=== PATIENT | male | born 1955 | race Caucasian/White ===

== ENCOUNTER 2018-09-08 14:41 | Emergency (ER) | payer SELFPAY ==
[~2018-09-08] VITALS: Ht 182.9 cm; Wt 75.0 kg
--- NOTE | 2018-09-08 14:49 | NUR ---
FOUND UNCONSIOUS BY EMS WITH A 2 CM LACERATION ON THE BACK OF HIS HEAD. 1.5 MG NARCAN GIVEN IN THE FIELD WITH EFFECT. PT CLAIMS HIS NAME IS CHIKA LLAMAS. PT STATES HE HAS A HEADACHE. PT NOT ANSWERING QUESTIONS ASKED BY RNS. VS STABLE. PT PLACED IN A GOWN.
--- NOTE | 2018-09-08 14:57 | NUR ---
DR BRIDGES AT BEDSIDE. PT NOT FORTHCOMING REGARDING HEALTH HX AND EVENTS LEADING TO CURRENT SITUATION. POC DISCUSSED, ORDERS REC'D. PT ON ALL MONITORS, VSS. C/O SMITH BUT OTHERWISE HAS NO COMPLAINTS OF PAIN. 4 LACERATIONS NOTED TO RIGHT SCALP AREA, UNABLE TO ASSESS DEPTH, WILL CLEAN AND IRRIGATE NO ACTIVE BLEEDING AT THIS TIME.
--- NOTE | 2018-09-08 15:00 | NUR ---
PT NOW SLEEPING SP002 ON RA DROPS TO 88% 03L NC PLACED WITH EFFECT.
--- NOTE | 2018-09-08 15:15 | NUR ---
PT REFUSED LABS, CUSSING AT EXTRACTION OPERATOR AND DEMANDED TECH LEAVE THE ROOM
[2018-09-08] MEDS ORDERED: ONDANSETRON 2MG/ML, 2ML ONE (15:41)
--- NOTE | 2018-09-08 15:46 | NUR ---
PT +EMESIS, DR BRIDGES NOTIFIED. KASEY MOHAN. PT TO CT WITH TECH AND EMT STUDENT TRANSPORT.
[2018-09-08] MEDS ORDERED: ONDANSETRON 2MG/ML, 2ML IVPush ONE (16:00)
[2018-09-08] MEDS ORDERED: PLEASE ENTER ALLERGIES MC SCH (16:00)
--- NOTE | 2018-09-08 16:03 | NUR ---
PT RTD FROM CT. ARROUSES TO VERBAL STIMULI, VSS, RESP EVEN, NON LABORED.
--- NOTE | 2018-09-08 16:40 | NUR ---
MEAL TRAY ORDERD
[2018-09-08] MEDS ORDERED: FAMOTIDINE 20 MG/2 ML ONE (17:07)
[2018-09-08] MEDS ORDERED: KETOROLAC 30 MG/1 ML ONE (17:07)
--- NOTE | 2018-09-08 17:11 | NUR ---
WHEN PREPARING PT FOR D/C PT HAD 250ML EMESIS AND C/O SMITH. DR. BRIDGES INFORMED, ADDITIONAL ORDER REC'D. AND PT MED NOTED.
[2018-09-08] MEDS ORDERED: FAMOTIDINE 20 MG/2 ML IVP ONE (17:30)
[2018-09-08] MEDS ORDERED: KETOROLAC 30 MG/1 ML IVPush ONE (17:30)
[2018-09-08 18:09] VITALS: BP 120/77
--- NOTE | 2018-09-08 18:25 | NUR ---
PT TOLLERATING PO FLUIDS. OOB, DRESSED INDEPENDENTLY AND AMBULATED TO BATHROOM.
--- NOTE | 2018-09-08 18:26 | NUR ---
PT D/C WITH TAXI VOUCHER TO [facility] PER PTS REQUEST. D/C INST REVIEWED AND PT VERBALIZED UNDERSTANDING BUT REFUSED TO SIGN. PT REFUSED TO GIVE REGISTRATION ANY PERSONAL INFORMATION. PT WAITING FOR TAXI, HIS LARGE DUFFLE BAG IS IN HIS CUSTODY.
== END 2018-09-08 18:37 | disposition home or self-care (01) ==
LOC: ED 18:31
DX: S06.0X0A Concussion without loss of consciousness, initial encounter (principal); S01.01XA Laceration without foreign body of scalp, initial encounter; F10.20 Alcohol dependence, uncomplicated; F11.20 Opioid dependence, uncomplicated; R11.10 Vomiting, unspecified; Z72.9 Problem related to lifestyle, unspecified; F17.200 Nicotine dependence, unspecified, uncomplicated; J44.9 Chronic obstructive pulmonary disease, unspecified; X58.XXXA Exposure to other specified factors, initial encounter; Y93.01 Activity, walking, marching and hiking; Y92.89 Other specified places as the place of occurrence of the external cause; Y99.8 Other external cause status
CPT/HCPCS: 70450; 96374; 96375; 99284; J1885; J2405; J3490